=== PATIENT | female | born 1980 | race African-American/Black ===

== ENCOUNTER 2022-01-03 15:20 | Emergency (ER) | payer OTHER ==
[2022-01-03 15:34] VITALS: BP 135/85; PULSE 88; TEMP 97.8; BMI 38.3
[2022-01-03] MEDS: ACETAMINOPHEN 500 MG TABLET (FP) PO ONE ×2 (17:20→17:38)
[2022-01-03] MEDS ORDERED: ACETAMINOPHEN 500 MG TABLET (FP) ONE (17:24)
[2022-01-03 17:42] LABS: BASO % 0.3 % (0-2.0); EOS % 1.4 % (0-4.5); HEMOGLOBIN 13.1 GM/dL (10.7-15.3); LYMPH % 24.5 % (8-40); MCH 28.8 pg (25.7-33.7); MCHC 32.8 g/dl (32.0-36.0); MEAN CELL VOLUME 87.9 fl (80-96); MEAN PLT VOLUME 8.3 fl (7.5-11.1); MONO % 6.1 % (3.8-10.2); NEUT % 67.7 % (42.8-82.8); PLATELET COUNT 212 10^3/uL (134-434); RBC 4.55 M/mm3 (3.60-5.2); RDW 13.4 % (11.6-15.6); WHITE BLOOD COUNT 6.8 K/mm3 (4.0-10.0)
[2022-01-03 17:56] LABS: CHLORIDE 104 mmol/L (98-107); SODIUM 135 mmol/L (136-145)
[2022-01-03 18:00] LABS: CALCIUM 8.9 mg/dL (8.5-10.1)
[2022-01-03 18:01] LABS: ANION GAP 8 MMOL/L (8-16); BLOOD UREA NITROGEN 6.5 mg/dL (7-18); CO2 23 mmol/L (21-32); GLUCOSE,RANDOM 147 mg/dL (74-106)
[2022-01-03 18:02] LABS: PROTHROMBIN TIME (PATIENT) 11.5 SEC (9.7-13.0)
[2022-01-03 18:04] LABS: CREATININE 0.6 mg/dL (0.55-1.3); SGOT/AST 13 U/L (15-37); SGPT/ALT 18 U/L (13-61)
[2022-01-03 18:05] LABS: BILIRUBIN,TOTAL 0.4 mg/dL (0.2-1); TOT PROT 6.5 g/dl (6.4-8.2)
[2022-01-03 18:06] LABS: ALK PHOS 59 U/L (45-117)
[2022-01-03 18:45] LABS: EPI CELLS 19 /uL (0-25.1); HYALINE CASTS 0 /uL (0-3.1); URINE APPEARANCE CLEAR; URINE BACTERIA 1167 /uL (0-1359); URINE BILIRUBIN NEGATIVE (NEGATIVE); URINE COLOR YELLOW; URINE GLUCOSE (UA) NEGATIVE (NEGATIVE); URINE KETONE TRACE (NEGATIVE); URINE LEUK ESTERASE TRACE (NEGATIVE); URINE NITRITE NEGATIVE (NEGATIVE); URINE PROTEIN NEGATIVE (NEGATIVE); URINE RBC 16 /uL (0-23.9); URINE UROBILINOGEN 0.2 mg/dL (0.2-1.0); URINE WBC 15 /uL (0-25.8)
[2022-01-03 19:07] LABS: N-TERMINAL BNP < 5.0 pg/ml (5-125)
== END 2022-01-03 19:40 | disposition home or self-care (01) ==
LOC: JERFT 15:20 → JER 15:20
DX: O99.412 Diseases of the circulatory system complicating pregnancy, second trimester (principal); R00.2 Palpitations; Z3A.16 16 weeks gestation of pregnancy
CPT/HCPCS: 36415; 80053; 81003; 82550; 83880; 84439; 84443; 84484; 84702; 85025; 85610; 87086; 93005; 93010; 99284-25